=== PATIENT | male | born 1980 | race Caucasian/White ===

== ENCOUNTER 2021-03-18 07:34 | Day surgery (SDC) | payer BC ==
[2021-03-18] VITALS (7 sets, daily range): BP systolic 100–140; BP diastolic 57–84
[~2021-03-18] VITALS: Ht 185.4 cm; Wt 104.4 kg
[2021-03-18] MEDS ORDERED: LACTATED RINGERS 1,000 ML IV STA (07:36)
--- OUTSIDE RECORDS SUMMARY | 2021-03-18 07:38 | XMS REPORT | CCD ---
Author Author Clem Rausch APRN Organization [facility] Address [address] [place] [address] Phone Care Team Providers Care Mechanic Senior Name Role Phone Simón Michaud D.O., PP Unavailable CCM Unavailable Summary Purpose Interface Exchange Insurance Providers Payer name Policy type / Coverage type Covered green party ID Effective Begin Date Effective End Date Blue Cross Blue Shield Blue Cross/Blue Shield [id number] Unknown Family history Mother Diagnosis Age At Onset No Family Disease Entered N/A Father Diagnosis Age At Onset No Family Disease Entered N/A Social History Social History Element Codes Description Effective Dates Marital status Unknown 11/06/2012 Number of children Unknown 2 11/06/2012 Employment Unknown Currently employed Self 11/06/[address]: 75386616 Current every day smoker 07/[address]: 625695 Currently drinks alc ohol Socially 11/06/2012 Has the patient ever used illegal drugs? Unknown Has nev er used illegal drugs 11/06/2012 Allergies, Adverse Reactions, Alerts Substance Reaction Codes Entered Date Inactivated Date Status * NO KNOWN DRUG ALLERGIES Unknown 11/06/2012 No Inactiv e Date Active * NO KNOWN ENVIRONMENTAL ALLERGIES Unknown 11/06/2012 N o Inactive Date Active * NO KNOWN FOOD ALLERGIES Unknown 11/06/2012 No Inactiv e Date Active Problems Condition Codes Effective Dates Condition Status Blood in stool ICD-10: K92.1 ICD-9: 578.1 03/11/2021 Active Dark stools ICD-10: R19.5 ICD-9: 792.1 03/11/2021 Active Gastroesophageal reflux disease, unspecified whether e sophagitis present ICD-10: K21.9 ICD-9: 530.81 03/11/2021 Active Localized enlarged lymph nodes ICD-10: R59.0 ICD-9: 785.6 09/11/2016 Active Joint effusion, knee ICD-9: 719.06 12/27/2014 Active Reactive cervical lymphadenopathy ICD-9: 785.6 12/27/2014 Active Vasovagal episode ICD-9: 780.2 09/07/2014 Active CELLULITIS ICD-9: 682.9 01/15/2013 Active Skin lesion of cheek ICD-9: 709.9 01/15/2013 Active COUGH ICD-9: 786.2 11/06/2012 Active FEBRILE ILLNESS ICD-9: 780.60 11/06/2012 Active PHARYNGITIS, ACUTE ICD-9: 462 11/06/2012 Active SINUSITIS, ACUTE ICD-9: 461.9 11/06/2012 Active Medications Medication Codes Instructions Start Date Stop Date Status Fill Instructions pantoprazole 40 mg tablet,delayed release RxNorm: 264909 Take 1 Tablet(s) Oral QD 03/11/2021 06/08/2021 Active Zyrtec 10 mg tablet RxNorm: 7146876 1 Tablet(s) PO as needed 201603/10/2021 Inactive Septra DS 800 mg-160 mg tablet RxNorm: 909221 1 Tablet(s) PO BID 01/24/2013 Inactive mupirocin 2 % Topical Cream RxNorm: 039640 3/4 TOP BID 01/15/2013 Inactive Levaquin 750 mg tablet RxNorm: 695720 1 Tablet(s) PO QD antibiotic 11/06/2012 11/15/2012 Inactive Medrol (Kalia) 4 mg tablets in a dose pack RxNorm: 289616 Tablet(s) PO as directed 09/07/2014 09/06/2014 Inactive Medication Administered No Medication Administered data Immunizations No Immunization data Results No Results data Procedures Procedure Codes Date DRAINAGE OF SKIN ABSCESS CPT-4: 19314 01/15/2013 AEROBIC WOUND CULTURE & STN CPT-4: 35554 01/15/2013 Vital Signs Date Vital 03/11/2021 Blood Pressure 1: 118/82 Code: 8480-6 Heart Rate 1: 68 bpm Respiratory Rate: 20 bpm SpO2: 97% Temperature: 36.8 (C) / 98.2 (F) We ight: 236 lbs Code: 51631-2 09/11/2016 Blood Pressure 1: 112/78 Code: 8480-6 BMI: 31.7 Code: 07893-2 Heart Rate 1: 72 bpm Height: 6'1" Code: 8302-2 Respiratory Rate: 18 bpm SpO2: 97% Temperature: 36.4 (C) / 97.6 (F) Weight: 240 lbs Code: 73610-6 12/28/2014 Blood Pressure 1: 128/74 Code: 8480-6 BMI: 29.9 Code: 73330-6 Heart Rate 1: 64 bpm Height: 6'1" Code: 8302-2 Respiratory Rate: 20 bpm Temperatu re: 37.0 (C) / 98.6 (F) Weight: 227 lbs Code: 99042-1 09/07/2014 Blood Pressure 1: 132/78 Code: 8480-6 BMI: 31.4 Code: 29412-0 Heart Rate 1: 68 bpm Height: 6'1" Code: 8302-2 Respiratory Rate: 22 bpm Temperatu re: 36.4 (C) / 97.6 (F) Weight: 238 lbs Code: 08534-8 01/15/2013 Blood Pressure 1: 126/64 Code: 8480-6 Heart Rate 1: 72 bpm Temperature: 37.2 (C) / 98.9 (F) 11/06/2012 Blood Pressure 1: 134/80 Code: 8480-6 BMI: 28.5 Code: 96450-5 Heart Rate 1: 76 bpm Height: 6'1" Code: 8302-2 Respiratory Rate: 20 bpm Temperatu re: 37.5 (C) / 99.5 (F) Weight: 216 lbs Code: 22669-7 Functional Status No Functional Status data Reason For Visit Reason For Visit Effective Dates Notes hematochezia 03/11/2021 lymph node enlargement/mass 09/11/2016 Patient stat es he works with [employer] 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 lymph node enlargement/mass 12/28/2014 syncope 09/07/2014 skin lesion 01/15/2013 rt cheek - started l ast ~generic 11/06/2012 Establishing Visit Encounters Encounter Performer Location Codes Date (75570) OFFICE/OUTPATIENT VISIT EST Diagnosis: Dark stools[ICD10: R19.5] Diagnosis: Blood in stool[ICD10: K92.1] Diagnosis: Gastroesophageal reflux disease, unspecified whether esophagitis present[ICD10: K21.9] Azra Gamboa [facility] CPT-4: 99 213 03/11/2021 ([id number]) OFFICE/OUTPATIENT VISIT EST Diagnosis: Localized enlarged lymph nodes[ICD10: R59.0] Simón CARPENTER [facility] CPT-4: 57678 09/11/2016 ([id number]) OFFICE/OUTPATIENT VISIT EST Diagnosis: Joint effusion, knee[ICD9: 719.06] Diagnosis: Reactive cervical lymphadenopathy[ICD9: 785.6] Christal CARPENTER [facility] CPT-4: 34245 12/28/2014 ([id number]) OFFICE/OUTPATIENT VISIT EST Diagnosis: Vasovagal episode[ICD9: 780.2] Christal CARPENTER [facility] CPT-4: 12793 09/07/2014 OFFICE/OUTPATIENT VISIT EST Diagnosis: Skin lesion of cheek[ICD9: 709.9] Diagnosis: CELLULITIS[ICD9: 682.9] Italia CARPENTER [facility] CPT-4: 05265 01/15/2013 OFFICE/OUTPATIENT VISIT NEW Diagnosis: COUGH[ICD9: 786.2] Diagnosis: FEBRILE ILLNESS[ICD9: 780.60] Diagnosis: SINUSITIS, ACUTE[ICD9: 461.9] Diagnosis: PHARYNGITIS, ACUTE[ICD9: 462] Italia CARPENTER [facility] CPT-4: 71055 11/06/2012 Plan of Care Planned Activity Notes Codes Status Date Visit Diagnosis Plan: Blood in stool Discussion: Will send referral to Dr. Burgess for egd/colonoscopy and do FOBT. ICD-9 : 578.1 ICD-10 : K92.1 03/11/2021 Visit Diagnosis Plan: Gastroesophageal r eflux disease, unspecified whether esophagitis present Discussion: Start pantoprazole. Continue decreasing alcohol intake. Avoid triggering food. Referral to Dr. Burgess for EGD/colonsoscopy. 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 Schedule follow-up appt. to see Dr. Michaud for possible knee/joint drainage. 12/28/2014 Appointment: Christal Ortega WPtel: [address] [place], [place] [phone] ACUTE ILLNESS 12/28/2014 Patient Education: Patient Medication Summary Completed 12/28/2014 Appointment: Christal Ortega WPtel: [address] [place], [place] [address] ACUTE ILLNESS 09/07/2014 Patient Education: Patient Medication Summary Completed 09/07/2014 Appointment: Italia Rausch WPtel: [address] [place], [place] [phone] 01/14 rescheduled to 4 on 01/15/13 ACUTE ILLNESS 01/15/2013 Patient Education: Patient Medication Summary Completed 01/15/2013 Appointment: Italia Rausch [facility]Ptel[facility] [phone] [facility] NEW PATIENT 11/06/2012 Patient Education: Patient Medication Summary Completed 11/06/2012 Instructions Comment . Start Daily Zyrtec Warm saline gargles Monitor cervical lymph node and follow-up for worsening symptoms. Schedule follow-up appt. to see Dr. Michaud for possible knee/joint drainage. Medical Equipment No Medical Equipment data Health Concerns Section Health Concerns data not found Goals Section Goals data not found Interventions Section Interventions data not found Health Status Evaluations/Outcomes Section Health Status Evaluations/Outcomes data not found Advance Directives No Advance Directive data
--- OUTSIDE RECORDS SUMMARY | 2021-03-18 07:38 | XMS REPORT | CCD ---
Author Author Clem Rausch APRN Organization [facility] Address [address] [place] [address] Phone Care Team Providers Care Environmental Law Professor Name Role Phone Simón Michaud D.O., PP Unavailable CCM Unavailable Summary Purpose Interface Exchange Insurance Providers Payer name Policy type / Coverage type Covered green party ID Effective Begin Date Effective End Date Blue Cross Blue Shield Blue Cross/Blue Shield [id number] Unknown Family history Mother Diagnosis Age At Onset No Family Disease Entered N/A Father Diagnosis Age At Onset No Family Disease Entered N/A Social History Social History Element Codes Description Effective Dates Marital status Unknown 11/06/2012 Number of children Unknown 2 11/06/2012 Employment Unknown Currently employed Self 11/06/[address]: 85478489 Current every day smoker 07/[address]: 979935 Currently drinks alc ohol Socially 11/06/2012 Has [...] Instructions pantoprazole 40 mg tablet,delayed release RxNorm: 158836 Take 1 Tablet(s) Oral QD 03/11/2021 06/08/2021 Active Zyrtec 10 mg tablet RxNorm: 2515913 1 Tablet(s) PO as needed 201603/10/2021 Inactive Septra DS 800 mg-160 mg tablet RxNorm: 803433 1 Tablet(s) PO BID 01/24/2013 Inactive mupirocin 2 % Topical Cream RxNorm: 835728 3/4 TOP BID 01/15/2013 Inactive Levaquin 750 mg tablet RxNorm: 742858 1 Tablet(s) PO QD antibiotic 11/06/2012 11/15/2012 Inactive Medrol (Kalia) 4 mg tablets in a dose pack RxNorm: 891897 Tablet(s) PO as directed 09/07/2014 09/06/2014 Inactive Medication Administered No Medication Administered data Immunizations No Immunization data Results No Results data Procedures Procedure Codes Date DRAINAGE OF SKIN ABSCESS CPT-4: 50089 01/15/2013 AEROBIC WOUND CULTURE & STN CPT-4: 45396 01/15/2013 Vital Signs Date Vital 03/11/2021 Blood Pressure 1: 118/82 Code: 8480-6 Heart Rate 1: 68 bpm Respiratory Rate: 20 bpm SpO2: 97% Temperature: 36.8 (C) / 98.2 (F) We ight: 236 lbs Code: 30560-5 09/11/2016 Blood Pressure 1: 112/78 Code: 8480-6 BMI: 31.7 Code: 24636-5 Heart Rate 1: 72 bpm Height: 6'1" Code: 8302-2 Respiratory Rate: 18 bpm SpO2: 97% Temperature: 36.4 (C) / 97.6 (F) Weight: 240 lbs Code: 55223-7 12/28/2014 Blood Pressure 1: 128/74 Code: 8480-6 BMI: 29.9 Code: 22208-0 Heart Rate 1: 64 bpm Height: 6'1" Code: 8302-2 Respiratory Rate: 20 bpm Temperatu re: 37.0 (C) / 98.6 (F) Weight: 227 lbs Code: 32341-7 09/07/2014 Blood Pressure 1: 132/78 Code: 8480-6 BMI: 31.4 Code: 75727-6 Heart Rate 1: 68 bpm Height: 6'1" Code: 8302-2 Respiratory Rate: 22 bpm Temperatu re: 36.4 (C) / 97.6 (F) Weight: 238 lbs Code: 71432-3 01/15/2013 Blood Pressure 1: 126/64 Code: 8480-6 Heart Rate 1: 72 bpm Temperature: 37.2 (C) / 98.9 (F) 11/06/2012 Blood Pressure 1: 134/80 Code: 8480-6 BMI: 28.5 Code: 14054-3 Heart Rate 1: 76 bpm Height: 6'1" Code: 8302-2 Respiratory Rate: 20 bpm Temperatu re: 37.5 (C) / 99.5 (F) Weight: 216 lbs Code: 49566-0 Functional Status No Functional Status data Reason For Visit Reason For Visit Effective Dates Notes hematochezia 03/11/2021 lymph node enlargement/mass 09/11/2016 Patient stat es he works with [employer] 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 lymph node enlargement/mass 12/28/2014 syncope 09/07/2014 skin lesion 01/15/2013 rt cheek - started l ast ~generic 11/06/2012 Establishing Visit Encounters Encounter Performer Location Codes Date (07174) OFFICE/OUTPATIENT VISIT EST Diagnosis: Dark stools[ICD10: R19.5] Diagnosis: Blood in stool[ICD10: K92.1] Diagnosis: Gastroesophageal reflux disease, unspecified whether esophagitis present[ICD10: K21.9] Azra Gamboa [facility] CPT-4: 99 213 03/11/2021 ([id number]) OFFICE/OUTPATIENT VISIT EST Diagnosis: Localized enlarged lymph nodes[ICD10: R59.0] Simón CARPENTER [facility] CPT-4: 18595 09/11/2016 ([id number]) OFFICE/OUTPATIENT VISIT EST Diagnosis: Joint effusion, knee[ICD9: 719.06] Diagnosis: Reactive cervical lymphadenopathy[ICD9: 785.6] Christal CARPENTER [facility] CPT-4: 53906 12/28/2014 ([id number]) OFFICE/OUTPATIENT VISIT EST Diagnosis: Vasovagal episode[ICD9: 780.2] Christal CARPENTER [facility] CPT-4: 89780 09/07/2014 OFFICE/OUTPATIENT VISIT EST Diagnosis: Skin lesion of cheek[ICD9: 709.9] Diagnosis: CELLULITIS[ICD9: 682.9] Italia CARPENTER [facility] CPT-4: 08666 01/15/2013 OFFICE/OUTPATIENT VISIT NEW Diagnosis: COUGH[ICD9: 786.2] Diagnosis: FEBRILE ILLNESS[ICD9: 780.60] Diagnosis: SINUSITIS, ACUTE[ICD9: 461.9] Diagnosis: PHARYNGITIS, ACUTE[ICD9: 462] Italia CARPENTER 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 Schedule follow-up appt. to see Dr. Michaud for possible knee/joint drainage. 12/28/2014 Appointment: Christal Ortega WPtel: [address] [place], [place] [phone] ACUTE ILLNESS 12/28/2014 Patient Education: Patient Medication Summary Completed 12/28/2014 Appointment: Christal Ortega WPtel: [address] [place], [place] [phone] ACUTE ILLNESS 09/07/2014 Patient Education: Patient Medication Summary Completed 09/07/2014 Appointment: Italia Rausch WPtel: [address] [place], [place] [phone] 01/14 rescheduled to 4 on 01/15/13 ACUTE ILLNESS 01/15/2013 Patient Education: Patient Medication Summary Completed 01/15/2013 Appointment: Italia Rausch [facility]el[facility] [phone] [facility] NEW [facility]IENT 11/06/2012 Patient Education: Patient Medication [...]
--- OUTSIDE RECORDS SUMMARY | 2021-03-18 07:38 | XMS REPORT | CCD ---
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 Name Role Phone Simón Michaud D.O., PP Unavailable CCM Unavailable Summary Purpose Interface Exchange Insurance Providers Payer name Policy type / Coverage type Covered democrat ID Effective Begin Date Effective End Date Blue Cross Blue Shield Blue Cross/Blue Shield [id number] Unknown Family history Mother Diagnosis Age At Onset No Family Disease Entered N/A Father Diagnosis Age At Onset No Family Disease Entered N/A Social History Social History Element Codes Description Effective Dates Marital status Unknown 11/06/2012 Number of children Unknown 2 11/06/2012 Employment Unknown Currently employed Self 11/06/[address]: 39771348 Current every day smoker 07/[address]: 248290 Currently drinks alc ohol Socially 11/06/2012 Has [...] Instructions pantoprazole 40 mg tablet,delayed release RxNorm: 282550 Take 1 Tablet(s) Oral QD 03/11/2021 06/08/2021 Active Zyrtec 10 mg tablet RxNorm: 5398985 1 Tablet(s) PO as needed 201603/10/2021 Inactive Septra DS 800 mg-160 mg tablet RxNorm: 009697 1 Tablet(s) PO BID 01/24/2013 Inactive mupirocin 2 % Topical Cream RxNorm: 218675 3/4 TOP BID 01/15/2013 Inactive Levaquin 750 mg tablet RxNorm: 928769 1 Tablet(s) PO QD antibiotic 11/06/2012 11/15/2012 Inactive Medrol (K[place]) 4 mg tablets in a dose pack RxNorm: 368003 Tablet(s) PO as directed 09/07/2014 09/06/2014 Inactive Medication Administered No Medication Administered data Immunizations No Immunization data Results No Results data Procedures Procedure Codes Date DRAINAGE OF SKIN ABSCESS CPT-4: 33831 01/15/2013 AEROBIC WOUND CULTURE & STN CPT-4: 07239 01/15/2013 Vital Signs Date Vital 03/11/2021 Blood Pressure 1: 118/82 Code: 8480-6 Heart Rate 1: 68 bpm Respiratory Rate: 20 bpm SpO2: 97% Temperature: 36.8 (C) / 98.2 (F) We ight: 236 lbs Code: 13918-5 09/11/2016 Blood Pressure 1: 112/78 Code: 8480-6 BMI: 31.7 Code: 02840-4 Heart Rate 1: 72 bpm Height: 6'1" Code: 8302-2 Respiratory Rate: 18 bpm SpO2: 97% Temperature: 36.4 (C) / 97.6 (F) Weight: 240 lbs Code: 39506-0 12/28/2014 Blood Pressure 1: 128/74 Code: 8480-6 BMI: 29.9 Code: 73681-1 Heart Rate 1: 64 bpm Height: 6'1" Code: 8302-2 Respiratory Rate: 20 bpm Temperatu re: 37.0 (C) / 98.6 (F) Weight: 227 lbs Code: 92352-9 09/07/2014 Blood Pressure 1: 132/78 Code: 8480-6 BMI: 31.4 Code: 31989-9 Heart Rate 1: 68 bpm Height: 6'1" Code: 8302-2 Respiratory Rate: 22 bpm Temperatu re: 36.4 (C) / 97.6 (F) Weight: 238 lbs Code: 21971-4 01/15/2013 Blood Pressure 1: 126/64 Code: 8480-6 Heart Rate 1: 72 bpm Temperature: 37.2 (C) / 98.9 (F) 11/06/2012 Blood Pressure 1: 134/80 Code: 8480-6 BMI: 28.5 Code: 08825-7 Heart Rate 1: 76 bpm Height: 6'1" Code: 8302-2 Respiratory Rate: 20 bpm Temperatu re: 37.5 (C) / 99.5 (F) Weight: 216 lbs Code: 33264-7 Functional Status No Functional Status data Reason For Visit Reason For Visit Effective Dates Notes hematochezia 03/11/2021 lymph node enlargement/mass 09/11/2016 Patient stat es he works with [employer] 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 lymph node enlargement/mass 12/28/2014 syncope 09/07/2014 skin lesion 01/15/2013 rt cheek - started l ast ~generic 11/06/2012 Establishing Visit Encounters Encounter Performer Location Codes Date (28923) OFFICE/OUTPATIENT VISIT EST Diagnosis: Dark stools[ICD10: R19.5] Diagnosis: Blood in stool[ICD10: K92.1] Diagnosis: Gastroesophageal reflux disease, unspecified whether esophagitis present[ICD10: K21.9] Azra Gamboa [facility] [employer] [facility] CPT-4: 99 213 03/11/2021 ([id number]) OFFICE/OUTPATIENT VISIT EST Diagnosis: Localized enlarged lymph nodes[ICD10: R59.0] Simón CARPENTER [employer] [facility] CPT-4: 62442 09/11/2016 ([id number]) OFFICE/OUTPATIENT VISIT EST Diagnosis: Joint effusion, knee[ICD9: 719.06] Diagnosis: Reactive cervical lymphadenopathy[ICD9: 785.6] Christal CARPENTER [employer] [facility] CPT-4: 63353 12/28/2014 ([id number]) OFFICE/OUTPATIENT VISIT EST Diagnosis: Vasovagal episode[ICD9: 780.2] Christal CARPENTER [employer] [facility] CPT-4: 09776 09/07/2014 OFFICE/OUTPATIENT VISIT EST Diagnosis: Skin lesion of cheek[ICD9: 709.9] Diagnosis: CELLULITIS[ICD9: 682.9] Italia CARPENTER [employer] [facility] CPT-4: 60255 01/15/2013 OFFICE/OUTPATIENT VISIT NEW Diagnosis: COUGH[ICD9: 786.2] Diagnosis: FEBRILE ILLNESS[ICD9: 780.60] Diagnosis: SINUSITIS, ACUTE[ICD9: 461.9] Diagnosis: PHARYNGITIS, ACUTE[ICD9: 462] Italia CARPENTER [employer] [facility] CPT-4: 61598 11/06/2012 Plan of Care Planned Activity Notes [...] 530.81 ICD-10 : K21.9 03/11/2021 Appointment: Azra aGmboa WPtel: [phone] [facility] ACUTE ILLNESS 03/11/2021 Patient Education: Patient Medication Summary Completed 03/11/2021 Patient Education: pantoprazole- OptimizeRX Coudeon [phone] [email or web address]/resources/getResource/61/[email or web address] Completed 03/11/2021 Visit Diagnosis Plan: Localized enlarged lymph nodes D iscussion: 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 Schedule follow-up appt. to see Dr. Michaud for possible knee/joint drainage. 12/28/2014 Appointment: Christal Ortega WPtel: [address] [place], [place] [phone] ACUTE ILLNESS 12/28/2014 Patient Education: Patient Medication Summary Completed 12/28/2014 Appointment: Christal Ortega WPtel: [address] [place], [place] [phone] ACUTE ILLNESS 09/07/2014 Patient Education: Patient Medication Summary Completed 09/07/2014 Appointment: Italia Rausch WPtel: [address] [place], [place] [phone] 01/14 rescheduled to 4 on 01/15/13 ACUTE ILLNESS 01/15/2013 Patient Education: Patient Medication Summary Completed 01/15/2013 Appointment: Italia Rausch [facility]el[facility] [phone] [facility] NEW PATIENT 11/06/2012 Patient Education: Patient [...]
[2021-03-18] MEDS ORDERED: LIDOCAINE JELLY 2% 6 ML SYRINGE MM PRN (07:45)
[2021-03-18] MEDS ORDERED: HURRICAINE EXT TUBE (BENZOCAINE) XX PRN (07:45)
[2021-03-18] MEDS ORDERED: MIDAZOLAM 2 MG/2 ML (VERSED) VIAL ONE (07:50)
[2021-03-18] MEDS ORDERED: PROPOFOL INJECTION 50 ML IV ONE (07:50)
[2021-03-18] MEDS ORDERED: LACTATED RINGERS 1,000 ML IV ONE (07:50)
--- NOTE | 2021-03-18 08:16 | Pre-Op Note & Conscious Sedat ---
Pre-Operative Progress Note H&P Reviewed The H&P was reviewed, patient examined and no changes noted. Date H&P Reviewed: Mar 18, 2021 Time H&P Reviewed: 08:16 Conscious Sedation Pre-Proced ASA Score 2 For ASA 3 and 4: Consider anesthesia and medical clearance. Also, for patients with a history of failed moderate sedation consider anesthesia. Airway Lungs Heart ASA score ASA 1: a normal healthy patient ASA 2: a patient with a mild systemic disease (mid diabetes, controlled hypertension, obesity ASA 3: a patient with a severe systemic disease that limits activity (angina, COPD, prior Myocardial infarction) ASA 4: a patient with an incapacitating disease that is a constant threat to life (CHF, renal failure) ASA 5: a moribund patient not expected to survive 24 hrs. (ruptured aneurysm) ASA 6: a declared brain- patient whose organs are being harvested. For emergent operations, add the letter E after the classification Mallampati Classification Grade 2 Sedation Plan Analgesia, Amnesia, Plan communicated to team members, Discussed options with patient/fam, Discussed risks with patient/fam The patient is an appropriate candidate to undergo the planned procedure, sedation, and anesthesia. The patient immediately re-assessed prior to indication. ANTONINO ANDERSON MD Mar 18, 2021 08:16
--- NOTE | 2021-03-18 09:33 | Anesthesia-General Post-Op ---
MAC Patient Condition Mental Status/LOC: Same as Preop Cardiovascular: Satisfactory Nausea/Vomiting: Absent Respiratory: Satisfactory Pain: Controlled Complications: Absent Post Op Complications Complications None Follow Up Care/Instructions Patient Instructions None needed. Anesthesiology Discharge Order Discharge Order Patient is doing well, no complaints, stable vital signs, no apparent adverse anesthesia problems. No complications reported per nursing. WES GARCIAS CRNA Mar 18, 2021 09:33
--- NOTE | 2021-03-18 16:23 | OPERATIVE REPORT ---
DATE OF SERVICE: PANENDOSCOPY SUMMARY INDICATION FOR THE PROCEDURE: Gastrointestinal bleed with reflux symptoms. DESCRIPTION OF PROCEDURE: The patient was placed in the left lateral decubitus position. The upper endoscope was inserted in the oral cavity and under direct visualization, esophagus was intubated. The endoscope was passed down the esophagus through stomach and second portion of the duodenum. Careful inspection was made as the endoscope was withdrawn. FINDINGS: The posterior pharynx, epiglottis, arytenoid aperture and true and false vocal folds were unremarkable to digital inspection. Proximal and mid esophagus was unremarkable. There was evidence for some sphincter laxity and a small sliding hiatal hernia without evidence for erosive esophagitis. The cardia, fundus and antrum of the stomach were unremarkable, say for several small fundal polyps. No evidence for gastritis was noted. The pylorus, pyloric channel, duodenal bulb and second portion of the duodenum were unremarkable as well. ASSESSMENT: Small sliding hiatal hernia was present without evidence for erosive esophagitis. We discussed the importance of continued portion control for weight loss and limiting food and fluid consumption 3 to 4 hours before lying down at night. P.r.n. Gaviscon in addition to continued proton pump inhibitor therapy if there was no evidence for peptic ulcer disease. We will then proceed with my colonoscopy. COLONOSCOPY: Prior to undergoing colonoscopy, digital rectal evaluation was performed. Anal sphincter tone was normal and the perianal reflexes intact. Prostate is normal in size and anodular on digital inspection and no abnormalities were noted on digital evaluation of the distal rectal vault or anal canal. The colonoscope was then inserted into the rectum and under direct visualization advanced to the cecum. The cecum was identified by identification of ileocecal valve and cecal strap. Photographic documentation was obtained. A careful inspection was made as colonoscope was withdrawn. Quality of prep was good. FINDINGS: There was evidence for small internal hemorrhoid noted, the most likely source of this patient's GI bleeding. No other anal canal or rectal vault abnormalities were noted. No evidence for external hemorrhoids were noted. Present in the distal sigmoid colon was a diminutive hyperplastic polyp measuring 2 mm in size. It was biopsied and ablated. The remainder of the sigmoid colon, descending colon, splenic flexure, transverse colon, hepatic flexure, ascending colon and cecum were unremarkable. ASSESSMENT: One small internal hemorrhoid was noted, the most likely source of this patient's intermittent rectal bleeding. The patient was reassured. One diminutive hyperplastic-appearing polyp was removed from the distal sigmoid colon with an otherwise unremarkable colonoscopy to the cecum under good prep conditions with normal digital evaluation of the prostate. We would just advocate consideration for a repeat screening colonoscopy in 10 years as long as the patient continues to note no family history for colon cancer. As an aside, the patient reports that his glands get intermittently swollen predominantly under the right jaw pointing the area of the sublingual gland and the right sublingual duct was a little more prominent. With history this is suspicious for possible small stone, it is only intermittent. Conservative management was recommended, but did discuss if symptoms are getting worse to return to Dr. Michaud's care to discuss ENT referral and the patient was reassured. Currently, no palpable adenopathy was noted on evaluation of the neck nor was the sublingual gland enlarged on either side at the time of inspection. I thank you for the referral of this pleasant gentleman. Job ID: [id number] DocumentID: [id number] Dictated Date: 03/18/2021 11:02:50 [employer] Date: 03/18/2021 16:22:21 Dictated By: ANTONINO ANDERSON MD MTDD
--- NOTE | 2021-03-21 06:18 | HISTORY AND PHYSICAL ---
DATE OF SERVICE: PANENDOSCOPY HISTORY AND PHYSICAL HISTORY: The patient is a 40-year-old white male initially noted maroon-colored stool, rather large volume one month ago. It happened on Sunday or Sunday. He reports he has been out with friends, drinking more than he normally does in regard to beer estimating 5 or 6. There was no associated pain. He has had some increase in reflux symptoms, goes back a number of years. He had not been taking medication, but just intermittent antacid. He denied any coughing or choking and denies dysphagia. Last Sunday, he had another episode under similar circumstances, again painless, but large volume and he has felt a little bit weak since. He has had no previous history of endoscopy and is not aware of any family history for GI tract malignancy. He denies change in weights or abdominal pain. FAMILY HISTORY: Both parents are living in their 60s with no health problems. PAST MEDICAL HISTORY: Other than reflux is noncontributory. He was recently started on omeprazole by his primary care provider. SOCIAL HISTORY: He is , with children, employed. No past smoking history, only intermittent weekend alcohol consumption and reportedly infrequent. REVIEW OF SYSTEMS: CONSTITUTIONAL: Denies night sweats, chills, fever or weight loss. CARDIOVASCULAR: The patient denies chest pain, pressure, orthopnea, PND or pedal edema. RESPIRATORY: The patient denies cough, wheezing or shortness of breath. GASTROINTESTINAL: As per HPI. PHYSICAL EXAMINATION: GENERAL: Reveals a white male, mild pallor, in no acute distress. VITAL SIGNS: Heart rate 90, blood pressure 108/80, weight 236 pounds. HEENT: Mild pallor unremarkable. CHEST: Clear. CARDIOVASCULAR: Revealed a regular rate and rhythm without murmur, S3 or S4. ABDOMEN: Soft, supple. There is some mild right lower quadrant abdominal discomfort to palpation without rebound or guarding. No mass or organomegaly is noted. EXTREMITIES: Reveal no cyanosis, clubbing or edema. ASSESSMENT AND PLAN: The patient is being set up for diagnostic panendoscopy, suspect colonic source of this bleeding, although with longstanding reflux symptoms, I cannot rule out upper tract pathology and he is going to be at risk for Spivey's, so we will be performing an urgent diagnostic panendoscopy. I thank you for the referral of this pleasant gentleman. Job ID: [id number] DocumentID: [id number] Dictated Date: 03/17/2021 15:47:40 Assistant [employer] Date: 03/17/2021 16:32:06 Dictated By: ANTONINO ANDERSON MD
== END 2021-03-18 10:25 | disposition home or self-care (01) ==
LOC: SDC 07:34 → ENDO 10:25
PROVIDERS: ATTEND Internal Medicine
DX: K44.9 Diaphragmatic hernia without obstruction or gangrene (principal); K21.9 Gastro-esophageal reflux disease without esophagitis; K64.8 Other hemorrhoids; K63.5 Polyp of colon; Z87.891 Personal history of nicotine dependence
CPT/HCPCS: 87636

== ENCOUNTER 2021-04-15 14:38 | Outpatient (RCR) | payer BC | END 2021-07-08 | disposition home or self-care (01) | PROVIDERS: ATTEND Nurse Practitioner Family | DX: H83.2X9 Labyrinthine dysfunction, unspecified ear (principal); R42 Dizziness and giddiness ==